=== PATIENT | female | born 1940 | race Two or more races ===

== ENCOUNTER 2018-05-25 15:34 | Emergency (ER) | payer OTHER ==
[~2018-05-25] VITALS: Ht 160 cm; Wt 69.9 kg
[~2018-05-25 15:34] MED LIST: DIOVAN40 MG
== END 2018-05-25 20:09 | disposition home or self-care (01) ==
LOC: ER 15:34
DX: N39.0 Urinary tract infection, site not specified (principal); B96.29 Other Escherichia coli [E. coli] as the cause of diseases classified elsewhere